=== PATIENT | female | born 1940 | race American Indian/Alaskan Native ===

== ENCOUNTER 2016-09-18 10:26 | Outpatient (CLI) | payer BC, MEDICARE ==
--- NOTE | 2016-09-18 13:41 | Fluoroscopy Report ---
Upper GI: Next History: Dyspepsia. Findings: The lapband is in good position. There is delay in emptying noted of barium from esophagus into the stomach. There is no passage of barium noted into the stomach. The esophagus appears dilated proximally. There was also reflux identified. No definite ulceration. Impression: Possible some tightness to lapband. Lapband in normal position.
== END 2016-09-18 10:27 | disposition home or self-care (01) ==
LOC: FLUORO 10:26
PROVIDERS: ATTEND Specialist
DX: K30 Functional dyspepsia (principal); K21.9 Gastro-esophageal reflux disease without esophagitis
CPT/HCPCS: 74247

== ENCOUNTER 2016-11-22 05:55 | Inpatient (IN) | payer MEDICARE ==
[~2016-11-22 05:55] MED LIST: NACL 0.9% 1000 ML 1,000 ML IV SCH; PEPCID PO NR
[2016-11-22] MEDS ORDERED: NACL BACTERIOSTATIC INFILTRATI ONE (07:43)
--- NOTE | 2016-11-22 08:00 | Anesthesia Day of Surgery ---
Anesthesia Day of Surgery - Day of Surgery Patient Examined: Yes Patient H&P Reviewed: Yes Patient is NPO: Yes
--- NOTE | 2016-11-22 08:00 | Anesthesia Consultation ---
Anesthesia Consult and Med Hx Date of service: 11/22/16 - Airway Anesthetic Teeth Evaluation: Good ROM Head & Neck: Adequate Mental/Hyoid Distance: Adequate Mallampati Class: Class II Intubation Access Assessment: Probably Good - Pulmonary Exam CTA: Yes - Cardiac Exam Cardiac Exam: RRR - Pre-Operative Health Status ASA Pre-Surgery Classification: ASA2 Proposed Anesthetic Plan: General - Pulmonary Hx Smoking: Yes (former) - Cardiovascular System Hx Hypertension: Yes (x 15 yrs) - Central Nervous System Hx Psychiatric Problems: Yes - Other Systems Hx Cancer: No
[2016-11-22] MEDS ORDERED: SUBLIMAZE ONE (08:05)
[2016-11-22] MEDS ORDERED: DIPRIVAN 10 MG/ML IV ONE (08:06)
[2016-11-22] MEDS ORDERED: MARCAINE-EPI 0.5%-1:200,000 INFILTRATI ONE ×2 (08:06→10:24)
[2016-11-22] MEDS ORDERED: XYLOCAINE 1% 20 mL ONE (08:06)
[2016-11-22] MEDS ORDERED: ZEMURON IV ONE (08:07)
[2016-11-22] MEDS ORDERED: XYLOCAINE MPF 2% ONE (08:08)
[2016-11-22 08:25] LABS: Basophils % (Auto) 1.1 % (0.0-1.8); Eosinophils % (Auto) 3.8 % (0.0-4.3); Hematocrit 40.8 % (30.3-42.9); Hemoglobin 13.5 gm/dl (10.1-14.3); Mean Corpuscular HGB Conc 33 % (30-34); Mean Corpuscular Hemoglobin 27 pg (28-32); Mean Corpuscular Volume 82 fl (79-97); Platelet Count 171 K/mm3 (140-440); Red Blood Count 4.97 M/mm3 (3.65-5.03); Red Cell Distribution Width 16.6 % (13.2-15.2); White Blood Count 5.5 K/mm3 (4.5-11.0)
[2016-11-22 08:37] LABS: Anion Gap 19 mmol/L; BUN/Creatinine Ratio 18.75; Blood Urea Nitrogen 15 mg/dL (7-17); Carbon Dioxide 25 mmol/L (22-30); Chloride 103.3 mmol/L (98-107); Glucose 103 mg/dL (65-100); Potassium 4.2 mmol/L (3.6-5.0); Sodium 143 mmol/L (137-145)
[2016-11-22] MEDS ORDERED: TRANSDERM-SCOP TD NR (09:00)
[2016-11-22] MEDS ORDERED: LOVENOX SUB-Q NR (09:00)
[2016-11-22] MEDS ORDERED: LEVAQUIN 500MG/100ML 500 MG/100 ML BAG IV NR (09:00)
[2016-11-22] MEDS ORDERED: PEPCID PO NR (09:00)
[2016-11-22] MEDS ORDERED: PEPCID IV NR (09:00)
[2016-11-22] MEDS ORDERED: ROBINUL ONE ×2 (09:08→10:12)
[2016-11-22] MEDS ORDERED: ZOFRAN ONE (09:25)
[2016-11-22] MEDS ORDERED: DECADRON ONE (09:25)
--- NOTE | 2016-11-22 09:25 | Admit Criteria Form ---
Admission Criteria Documentation: AMBULATORY SURGERY EXCEPTION CRITERIA Ambulatory Surgery Exception Criteria ( Place 'X' for any and all applicable criteria): Surgery or procedure performed on ambulatory basis may require inpatient stay for[A] ANY ONE of the following(1)(2)(3)(4)(5)(6)(7)(8)(9): [X] I. A preoperative situation, condition, or finding that warrants inpatient stay as indicated by ANY ONE of the following: [X] a) Inpatient care needed because of severity of a disease or condition rather than the surgery (eg, severe cardiac or respiratory disease, severe infection) (15) (16 ) (17) (18) [] b) Emergent procedure (eg, angioplasty for acute ischemia)(19) [] c) Complex surgical approach or situation as indicated by ANY ONE of the following(3): [] i) Open approach needed instead of usual endoscopic, transcatheter, or other less invasive procedure [] ii) Difficult approach because of previous operation [] iii) Airway monitoring required after open neck procedures(20)(21) [] iv) Large mass requiring unusually extensive dissection [] v) Additional complicating feature requiring inpatient care (eg, drain management)(22(23): [] d) Major surgery in a pt with high anesthetic risk as indicated by ANY ONE of the following (2)(3)(5)(7)(8): [] i) ASA risk class III or higher (severe systemic disease impairing function) [D] [] ii) Advanced age (eg, older than 85 years)(14)(24) [] iii) Symptomatic heart failure(25) [] iv) Symptomatic asthma or COPD(8)(21) [] v) Morbid obesity with hemodynamic or respiratory problems(20)( 21)(26)(27) [] vi) Obstructive sleep apnea(20)(21) [] vii) Former premature infants who are younger than 60 weeks [] viii) High risk for severe postoperative abnormalities (eg, severe postoperative hypocalcemia after parathyroidectomy for severe hyperparathyroidism)(27)( 28) [] ix) Unstable angina(25) [] e) Drug-related risk requiring inpatient stay as indicated by ANY ONE of the following(5)(10)(14)(32)(33) [] i) Procedure requires discontinuing drugs or other therapy (eg , antiarrhythmic medication, antiseizure medication), which necessitates inpatient observation or treatment.(18)(31) [] ii) Major surgery and high risk drug use as indicated by ANY ONE of the following: [] 1) Active abuse of cocaine or similar drug [] 2) Monoamine oxidase inhibitor use [] 3) Other drug identified as posing risk [] f) Inadequate outpatient care situation as indicated by ANY ONE of the following(5)(10)(14)(32)(33) [] i) Patient lives remote from medical facility and procedure has urgent complication potential, and temporary nearby residence cannot be arranged [] ii) Patient will have postprocedure incapacitation and inadequate assistance at home, or alternative level of care cannot be arranged. [] iii) Patient will have long general anesthesia or procedure side effect resolution time, and competent person to stay with patient on first postoperative night at home or alternative level of care cannot be arranged. []iv) Other inadequate outpatient situation that cannot be handled by other means [] II. A perioperative event, condition, or finding that warrants inpatient stay as indicated by ANY ONE of the following (1)(2)(3): [] a) Inadequate physiologic recovery: cardiovascular, respiratory, or hemodynamic status not normal or near preoperative baseline(18) [] b) Hemodynamic instability [] c) Patient not alert with near normal or baseline mental status [] d) Temperature not normal or as expected and not appropriate for outpatient treatment of condition [] e) Ambulatory or appropriate activity level status not yet achieved post procedure [E](34)(35)(36) [] f) Operative site not appropriate (eg, unexpected or excessive drainage or bleeding) [] g) Postoperative effects not resolved or adequately managed (eg, significant pain or vomiting not appropriate for outpatient or next level of care)(10)(12) [] h) Complicating features requiring inpatient care as indicated by ANY ONE of the following(37): [] i) Severe complications of procedure (eg, bowel injury, airway compromise, vascular injury,severe hemorrhage) [] ii) Extensive (eg, dissection far beyond usual scope of procedure ) or prolonged (eg, 120 minutes beyond usual) surgery needed requiring inpatient postoperative care [] iii) Conversion to an open or complex procedure that requires inpatient care (eg, open vs laparoscopic cholecystectomy, abdominal vs vaginal hysterectomy)(38) [] iv) Comorbid condition or test result identified during or post procedure that requires inpatient care (7) [] v) Malignant hyperthermia(30) [] vi) Other complicating feature requiring inpatient care(22)(23) Inpatient stay may be needed until ALL of the following are present (1)(2)(3)(4) (5)(6)(10)(14)(33)(40): []a) Physiologic recovery: cardiovascular, respiratory, and hemodynamic status normal or near preoperative baseline []b) Hemodynamic stability []c) Patient alert, with near normal or baseline mental status []d) Temperature appropriate: patient afebrile or temperature appropriate for outpt treatment of condition []e) Activity level appropriate: ambulatory or appropriate activity level post procedure []f) Operative site appropriate as indicated by ALL of the following: []i) Site dry or with expected drainage []ii) Any blood noted is as expected for procedure. []g) Postoperative effects resolved or managed as indicated by ALL of the following: []i) Pain management appropriate for outpatient (or next level of) care(10) []ii) Minimal nausea and vomiting: if present, successfully treated with oral medication(12) []iii) Headache, dizziness, or drowsiness (if present) are mild. []h) Voiding status acceptable as indicated by ANY ONE of the following: []i) Voiding spontaneously []ii) No voiding but instructions given for follow-up in 6 to 8 hours []iii) Urinary catheter in place, and instructions given for follow-up []i) Complicating features requiring inpatient care manageable at a lower level of care(37) []j) Comorbid conditions manageable at a lower level of care(37) The original [employer] content created by [employer] has been revised. The portions of the content which have been revised are identified through the use of italic text or in bold, and [employer] has neither reviewed nor approved the modified material. All other unmodified content is copyright [employer]. Please see references footnoted in the original [employer] edition 2016 Admission Criteria Met: Yes
[2016-11-22] MEDS ORDERED: NORMODYNE IV ONE (09:27)
[2016-11-22] MEDS ORDERED: PSEUDOEPHEDRINE PO SCH (10:00)
[2016-11-22] MEDS: WELLBUTRIN PO SCH (10:00)
[2016-11-22] MEDS ORDERED: QUELICIN ONE (10:00)
[2016-11-22] MEDS: celeXA PO SCH (10:00)
[2016-11-22] MEDS: TOPROL XL PO SCH ×2 (10:00→22:00)
[2016-11-22] MEDS ORDERED: FEXOFENADINE PO SCH (10:00)
[2016-11-22] MEDS ORDERED: NEO SYNEPHRINE ONE (10:08)
[2016-11-22] MEDS ORDERED: NACL 0.9% 100 ML ONE (10:08)
[2016-11-22] MEDS ORDERED: BLOXIVERZ ONE (10:12)
[2016-11-22] MEDS ORDERED: NACL 0.9% 1000 ML 1,000 ML ONE (10:19)
[2016-11-22] MEDS ORDERED: NACL 0.9% IR ONE ×2 (10:24)
[2016-11-22] MEDS ORDERED: XYLOCAINE 1% 20 mL INFILTRATI ONE (10:24)
[2016-11-22] MEDS ORDERED: REGLAN IV PRN (10:36)
[2016-11-22] MEDS ORDERED: MORPHINE IV PRN (10:36)
[2016-11-22] MEDS ORDERED: APRESOLINE IV PRN (10:36)
[2016-11-22] MEDS ORDERED: MYLICON PO PRN (10:36)
[2016-11-22] MEDS ORDERED: ZOFRAN IV PRN (10:36)
--- NOTE | 2016-11-22 10:53 | Post Anesthesia Evaluation ---
- Post Anesthesia Evaluation Patient Participated: Yes Airway Patent: Yes Stable Respiratory Function: Yes Nausea/Vomiting: No Temp > 96.8F: Yes Pain Manageable: Yes Adequeate Hydration: Yes Anesthesia Complications: No Block Receding Appropriately: Not Applicable Patient on Ventilator: No
[2016-11-22] MEDS: DILAUDID IV PRN ×3 (11:14→18:58)
--- NOTE | 2016-11-22 11:17 | Operative Report ---
Operative Report Operative Report: Operative Note Patient name: Vidhi Pryor : 1940 Pre-Operative/Procedure Diagnosis: Lap Band disfunction Post-Operative/Procedure Diagnosis: same as pre-op Procedure: Laparoscopic band removal Surgeon: Erlinda Ross MD Assistants: Tom Eagle CSA Anesthesia Type: GETA Indication: Pt has a history of gastric banding. She has been having issues with gastric reflux and is uncomfortable. She is wishing to have her lap band system removed. Procedure in detail: Pt agreed to procedure after risks and benefits were discussed with patient including but not limited to bleeding, infection, damage to surrounding structures and need for further surgery. Pt was supine on exam table. Bilateral lower extremity SCD were placed. General anesthesia was induced with successful endotracheal intubation. Her abdomen was prepped and draped in sterile fashion. A veress needle was used to insuflate the abdomen to a pressure of 15mmHg. Using optiview technique a 5mm trocar was placed left of midline superior to the umbilicus. There was noted to be no injury to any intra- abdominal structures. Four working structures were placed under direct visualization. 15mm in the right mid abdomen, and three 5mm trocars. One in the RUQ, LUQ, and epigastric area. A liver retractor was placed in the epigastric port and elevated the left lateral lobe of the liver. The patient was placed in steep reverse trendelenburg. The band was noted to be situated around the proximal stomach, with a mild inferior slip. The band was cut and removed from around the stomach to help re-establish a more normal stomach anatomy. It was then taken outside of the abdominal cavity. The gastro-gastric attachments were released with a blue load on the laparoscopic gama. The cicatrix was released. There was noted to be stomach tightly adhered to the underside of the liver. The tissue was noted to be very friable and we had encountered a lot of bleeding. It was felt that it would be safer to leave the adhesions in place. The patient was flattened out. The 15mm trocar fascia was closed with an #1 PDS using a suture passer device. Local anesthsia using 50/50 marcaine/lidocaine was used at all incision sites. The abdomen was desuflated, the band port was excised from the rectus fascia in the epigatric area. This pocket was closed in a layered fashion using 2-O vicryl followed by 4-O monocryl. All other incisions were closed with 4-O monocryl followed by dermabond. Pt was awoken and taken to recovery in stable condition. All counts were correct. Findings, Comments, Additional Events and Management: Specimens sent: Estimated Blood Loss: <10ml Condition: good
[2016-11-22] MEDS: NORCO PO PRN (11:30)
[2016-11-22] MEDS: LACTATED RINGERS 1,000 ML IV SCH ×2 (14:58→22:54)
[2016-11-22] MEDS: CLARITIN-D 24HR PO SCH (14:58)
[2016-11-22] MEDS ORDERED: ZOCOR PO SCH (22:00)
[2016-11-23 01:51] LABS: Basophils % (Auto) 0.1 % (0.0-1.8); Hematocrit 37.3 % (30.3-42.9); Mean Corpuscular HGB Conc 32 % (30-34); Mean Corpuscular Hemoglobin 27 pg (28-32); Mean Corpuscular Volume 83 fl (79-97); Platelet Count 154 K/mm3 (140-440); Red Blood Count 4.48 M/mm3 (3.65-5.03); Red Cell Distribution Width 16.4 % (13.2-15.2); White Blood Count 6.8 K/mm3 (4.5-11.0)
[2016-11-23 02:06] LABS: Alanine Aminotransferase 22 units/L (7-56); Albumin/Globulin Ratio 1.5 %; Alkaline Phosphatase 75 units/L (35-129); Anion Gap 21 mmol/L; BUN/Creatinine Ratio 16.66; Blood Urea Nitrogen 10 mg/dL (7-17); Calcium 8.5 mg/dL (8.4-10.2); Carbon Dioxide 21 mmol/L (22-30); Chloride 103.2 mmol/L (98-107); Glucose 108 mg/dL (65-100); Potassium 4.3 mmol/L (3.6-5.0); Sodium 141 mmol/L (137-145); Total Protein 6.6 g/dL (6.3-8.2)
[2016-11-23] MEDS: DILAUDID IV PRN (03:01)
[2016-11-23] MEDS: LACTATED RINGERS 1,000 ML IV SCH (05:29)
[2016-11-23 07:46] VITALS: BP 154/69
[2016-11-23] MEDS: NORCO PO PRN (07:47)
[2016-11-23] MEDS: celeXA PO SCH (09:41)
[2016-11-23] MEDS: TOPROL XL PO SCH (09:41)
[2016-11-23] MEDS: CLARITIN-D 24HR PO SCH (09:42)
[2016-11-23] MEDS: WELLBUTRIN PO SCH (09:42)
[2016-11-23] MEDS ORDERED: LOVENOX SUB-Q SCH (10:00)
[2016-11-23] MEDS ORDERED: LEVAQUIN 500MG/100ML 500 MG/100 ML BAG IV ONE (10:00)
[2016-11-23 10:46] LABS: Bacteria,Urine 1+ /HPF (Negative); Bilirubin,Urine NEG (Negative); Blood,Urine SM (Negative); Ketones,Urine NEG (Negative); Leukocyte Esterase,Urine NEG (Negative); Mucus,Urine FEW /HPF; Nitrite,Urine NEG (Negative); Protein,Urine <15 mg/dL mg/dL (Negative); Urobilinogen,Urine < 2.0 mg/dL (<2.0); WBC,Urine < 1.0 /HPF (0.0-6.0)
--- NOTE | 2016-11-25 15:54 | Discharge Summary ---
Providers - Providers Date of Admission: 11/22/16 05:55 Date of discharge: 11/23/16 Attending physician: JACQUELINE RUBIO Primary care physician: CAROLYN GAMA MD Hospitalization Condition: Good Hospital course: 76 y.o F admitted for lap band removal 11/22/16. Pt tolerated the procedure well. POD 2 she was advanced to a clear liquid diet and tolerated well. She was afebrile, ambulating and her pain was controlled prior to discharge. Disposition: DC-01 TO HOME OR SELFCARE Core Measure Documentation - Palliative Care Palliative Care/ Comfort Measures: Not Applicable - Core Measures Any of the following diagnoses?: none Exam - Physical Exam Narrative exam: Cardio: RRR Lungs: CTA BL Abd: soft, obese, incisional tenderness. incisions cdi. No rebound, no guarding. EXT: no c/c/e - Constitutional Vitals: Temp Pulse Resp BP Pulse Ox 98.3 F 84 16 154/69 98 11/23/16 07:43 11/23/16 09:41 11/23/16 07:43 11/23/16 09:41 11/23/16 07:43 Plan Activity: other (no heaving lifting >15lbs for 6 weeks) Diet: clear liquids Follow up with: CAROLYN GAMA MD [Primary Care Provider] - 7 Days
== END 2016-11-23 14:51 | disposition home or self-care (01) | DRG 989 ==
LOC: 3A 05:55 → 2B-SURG 11:25
PROVIDERS: ADMIT Surgery; ATTEND Surgery
PROC: 0DP64CZ Removal of Extraluminal Device from Stomach, Percutaneous Endoscopic Approach (ICD-10-PCS; principal; 2016-11-22)
DX: K95.09 Other complications of gastric band procedure (principal); F32.9 Major depressive disorder, single episode, unspecified; K30 Functional dyspepsia; K21.9 Gastro-esophageal reflux disease without esophagitis; R13.14 Dysphagia, pharyngoesophageal phase; F17.200 Nicotine dependence, unspecified, uncomplicated; I10 Essential (primary) hypertension; Z90.722 Acquired absence of ovaries, bilateral; Z80.9 Family history of malignant neoplasm, unspecified; Z88.1 Allergy status to other antibiotic agents; Z82.49 Family history of ischemic heart disease and other diseases of the circulatory system
CPT/HCPCS: 36415; 80048; 80053; 81001; 85025; 94760; A4217; J0330; J1100; J1170; J1650; J1956; J2370; J2405; J2704; J2710; J3010; J7030; J7120